=== PATIENT | female | born 1940 | race Two or more races ===

== ENCOUNTER 2017-12-30 09:15 | Inpatient (IN) | payer OTHER ==
[~2017-12-30] VITALS: Ht 152.4 cm; Wt 54.4 kg
[2017-12-30] MEDS ORDERED: ARICEPT10 MG PO (12:09)
[2017-12-30] MEDS ORDERED: PREVACID15 MG PO (12:09)
[2017-12-30] MEDS ORDERED: NORVASC10 MG PO (12:10)
[2017-12-30] MEDS ORDERED: TUMS200 MG PO (12:10)
[2017-12-30] MEDS ORDERED: LIPITOR20 MG PO (12:10)
[2017-12-30] MEDS ORDERED: LEXAPRO20 MG PO (12:10)
[2018-01-03] MEDS ORDERED: ARICEPT10 MG PO (12:52)
[2018-01-03] MEDS ORDERED: LEXAPRO20 MG PO (12:52)
[2018-01-03] MEDS ORDERED: LIPITOR20 MG PO (12:52)
[2018-01-03] MEDS ORDERED: AMLODIPINE BESYL5 MG PO (12:52)
[2018-01-03] MEDS ORDERED: PREVACID15 MG PO (12:52)
[2018-01-14] MEDS ORDERED: OXYC1TAB9 PO (15:06)
== END 2018-01-14 16:38 | disposition home health service (06) | DRG 331 ==
LOC: O/R 01-09 06:21 → SURH 01-09 09:15
PROVIDERS: Surgery
PROC: 0DTN4ZZ Resection of Sigmoid Colon, Percutaneous Endoscopic Approach (ICD-10-PCS; 2018-01-09)
PROC: 0DTQ4ZZ Resection of Anus, Percutaneous Endoscopic Approach (ICD-10-PCS; 2018-01-09)
PROC: 0D1M4Z4 Bypass Descending Colon to Cutaneous, Percutaneous Endoscopic Approach (ICD-10-PCS; 2018-01-09)
PROC: 07TC4ZZ Resection of Pelvis Lymphatic, Percutaneous Endoscopic Approach (ICD-10-PCS; 2018-01-09)
PROC: 0DTP4ZZ Resection of Rectum, Percutaneous Endoscopic Approach (ICD-10-PCS; principal; 2018-01-09 12:15)
DX: C20 Malignant neoplasm of rectum (principal); R59.0 Localized enlarged lymph nodes; I11.9 Hypertensive heart disease without heart failure; E78.4 Other hyperlipidemia; K29.00 Acute gastritis without bleeding; D50.0 Iron deficiency anemia secondary to blood loss (chronic)

== ENCOUNTER 2017-12-31 11:21 | Inpatient (IN) | payer OTHER ==
[~2017-12-31] VITALS: Ht 152.4 cm; Wt 54.4 kg
[~2017-12-31 11:21] MED LIST: ARICEPT10 MG PO; LEXAPRO20 MG PO; LIPITOR20 MG PO; NORVASC10 MG PO; PREVACID15 MG PO; TUMS200 MG PO
[2018-01-03] MEDS ORDERED: LIPITOR20 MG PO (12:52)
[2018-01-03] MEDS ORDERED: ARICEPT10 MG PO (12:52)
[2018-01-03] MEDS ORDERED: PREVACID15 MG PO (12:52)
[2018-01-03] MEDS ORDERED: LEXAPRO20 MG PO (12:52)
[2018-01-03] MEDS ORDERED: AMLODIPINE BESYL5 MG PO (12:52)
== END 2018-01-03 13:24 | disposition home or self-care (01) | DRG 812 ==
LOC: ER 11:21 → SEC-K 13:52 → MEDI 01-01 18:21
PROC: 30233N1 Transfusion of Nonautologous Red Blood Cells into Peripheral Vein, Percutaneous Approach (ICD-10-PCS; principal; 2018-01-01)
DX: D50.0 Iron deficiency anemia secondary to blood loss (chronic) (principal); C20 Malignant neoplasm of rectum; I11.9 Hypertensive heart disease without heart failure; E78.4 Other hyperlipidemia; K29.60 Other gastritis without bleeding

== ENCOUNTER 2018-01-07 05:55 | Day surgery (SDC) | payer OTHER ==
[~2018-01-07 05:55] MED LIST changes: +AMLODIPINE BESYL5 MG PO
== END 2018-01-07 09:40 | disposition home or self-care (01) ==
LOC: AMB-ENDOS 05:55
DX: C20 Malignant neoplasm of rectum (principal); R19.5 Other fecal abnormalities

== ENCOUNTER 2019-08-04 08:21 | Day surgery (SDC) | payer OTHER ==
[~2019-08-04 08:21] MED LIST changes: +OXYC1TAB9 PO
== END 2019-08-04 12:15 | disposition home or self-care (01) ==
LOC: AMB-ENDOS 08:21
DX: C20 Malignant neoplasm of rectum (principal); Z93.3 Colostomy status

== ENCOUNTER 2021-09-26 05:43 | Day surgery (SDC) | payer OTHER | END 2021-09-26 09:35 | disposition home or self-care (01) | LOC: AMB-ENDOS 05:43 | PROVIDERS: ATTEND Surgery | DX: K62.89 Other specified diseases of anus and rectum (principal); Z20.822 Contact with and (suspected) exposure to COVID-19 ==